=== PATIENT | male | born 1990 | race Two or more races ===

== ENCOUNTER 2016-12-11 16:37 | Emergency (ER) | payer SELFPAY ==
[~2016-12-11] VITALS: Ht 172.7 cm; Wt 85.0 kg
[2016-12-11 18:20] VITALS: BP 130/75
[2016-12-11] MEDS ORDERED: HYDROmorphone 1 MG/ML, 1ML IM STA (18:26)
[2016-12-11] MEDS ORDERED: HYDROmorphone 1 MG/ML, 1ML ONE (18:28)
[2016-12-11] MEDS ORDERED: ONDANSETRON ODT 4 MG ONE (18:28)
[2016-12-11] MEDS ORDERED: ONDANSETRON ODT 4 MG PO ONE (18:30)
== END 2016-12-11 19:50 | disposition home or self-care (01) ==
LOC: ED 19:31
DX: S82.51XA Displaced fracture of medial malleolus of right tibia, initial encounter for closed fracture (principal); S82.61XA Displaced fracture of lateral malleolus of right fibula, initial encounter for closed fracture; X50.1XXA Overexertion from prolonged static or awkward postures, initial encounter; Y93.89 Activity, other specified; Y92.89 Other specified places as the place of occurrence of the external cause; Y99.8 Other external cause status
CPT/HCPCS: 29515; 73610; 96372; 99284; J1170; Q0162

== ENCOUNTER → 2016-12-21 | Outpatient (CLI) | payer MEDICAID | END | disposition home or self-care (01) | LOC: CFH 13:54 | PROVIDERS: ATTEND Orthopaedic Surgery Foot and Ankle Surgery | DX: S82.851A Displaced trimalleolar fracture of right lower leg, initial encounter for closed fracture (principal); X58.XXXA Exposure to other specified factors, initial encounter; Y93.89 Activity, other specified; Y92.89 Other specified places as the place of occurrence of the external cause; Y99.8 Other external cause status ==